=== PATIENT | male | born 1970 | race Caucasian/White ===

== ENCOUNTER 2019-10-10 11:44 | Emergency (ER) | payer SELFPAY ==
[2019-10-10] MEDS ORDERED: Bacitracin Oint 1 GM U/D Packet TOP ONE (12:12)
--- NOTE | 2019-10-10 12:24 | EDM.PDOC ---
ED HPI GENERAL MEDICAL PROBLEM - General Chief Complaint: Laceration Time Seen by Provider: 10/10/19 12:15 Source of Information: Reports: Patient, RN History Limitations: Reports: No Limitations - History of Present Illness INITIAL COMMENTS - FREE TEXT/NARRATIVE: patient presents to the ED for a laceration over the PIP joint of left thumb with a piece of sheet metal. He states his tetanus is UTD. no bleeding at this time. - Related Data Allergies Allergy/AdvReac Type Severity Reaction Status Date / Time No Known Allergies Allergy Verified 10/10/19 12:04 Home Meds: Home Meds Escitalopram Oxalate [Lexapro] 20 mg PO DAILY 10/10/19 [History] Past Medical History Musculoskeletal History: Reports: Fracture - Past Surgical History Musculoskeletal Surgical History: Reports: Other (See Below) Other Musculoskeletal Surgeries/Procedures:: back surgery Social & Family History - Tobacco Use Smoking Status *Q: Current Every Day Smoker Years of Tobacco use: 30 Packs/Tins Daily: 0.5 ED ROS GENERAL - Review of Systems Review Of Systems: Comprehensive ROS is negative, except as noted in HPI. ED EXAM, SKIN/RASH Exam: See Below Exam Limited By: No Limitations General Appearance: Alert, WD/WN, No Apparent Distress Back Exam: Normal Inspection Neurological: Alert, Oriented Psychiatric: Normal Mood Skin: Warm, Dry, Wound/Incision (1 inch laceration over the PIP joint of left thumb. no loss of function or sensation. Full ROM intact) Location, Skin: Other (left thumb) Characteristics: Linear Lymphatic: No Adenopathy Course - Vital Signs Last Recorded V/S: Last Vital Signs Temp 96.8 F L 10/10/19 12:08 Pulse 74 10/10/19 12:08 Resp 12 10/10/19 12:08 BP 141/95 H 10/10/19 12:08 Pulse Ox 99 10/10/19 12:08 - Orders/Labs/Meds Meds: Medications Discontinued Medications Generic Name Dose Route Start Last Admin Trade Name Cain PRN Reason Stop Dose Admin Bacitracin 1 dose 10/10/19 12:12 10/10/19 12:22 Bacitracin Oint 1 Gm TOP 10/10/19 12:13 1 dose ONETIME ONE Administration Lidocaine HCl 5 ml 10/10/19 12:12 10/10/19 12:22 Xylocaine-Mpf 1% INJECT 10/10/19 12:13 5 ml ONETIME ONE Administration Departure - Departure Time of Disposition: 12:38 Disposition: Home, Self-Care 01 Condition: Good Clinical Impression: Laceration of left thumb without complication - Discharge Information *PRESCRIPTION DRUG MONITORING PROGRAM REVIEWED*: Not Applicable *COPY OF PRESCRIPTION DRUG MONITORING REPORT IN PATIENT RON: Not Applicable Instructions: Laceration Care, Adult, [id number] Referrals: PCP,None [Primary Care Provider] - Forms: ED Department Discharge Additional Instructions: Suture remove in 7-8 days. Use bacitracin on the wound for next 3 days and keep covered during the day- open to air at night. keep clean and dry. wash with soap and water twice daily and pat dry. watch for signs of infection (fever, redness, increased warmth, or swelling). Follow up with your PCP if any of these signs develop. Call or return to emergency department with any concerns. Sepsis Event Note (ED) - Evaluation Sepsis Screening Result: No Definite Risk - Focused Exam Vital Signs: Vital Signs Temp Pulse Resp BP Pulse Ox 10/10/19 12:08 96.8 F L 74 12 141/95 H 99 10/10/19 12:01 96.8 F L 74 12 141/95 H 99
== END 2019-10-10 12:50 | disposition home or self-care (01) ==
LOC: JP.ED 11:44
DX: S61.012A Laceration without foreign body of left thumb without damage to nail, initial encounter (principal); F17.210 Nicotine dependence, cigarettes, uncomplicated; W26.8XXA Contact with other sharp object(s), not elsewhere classified, initial encounter; Z79.899 Other long term (current) drug therapy
CPT/HCPCS: 12001; 99282; J2001

== ENCOUNTER 2019-12-19 11:03 | Emergency (ER) | payer MEDICAID, OTHER ==
[2019-12-19] MEDS ORDERED: Bacitracin Oint 1 GM U/D Packet TOP ONE (11:42)
[2019-12-19] MEDS ORDERED: Lidocaine 1% with EPINEPHrine 1:100,000 50 ML MDV SUBCUT STA (11:42)
--- NOTE | 2019-12-19 11:47 | EDM.PDOC ---
ED HPI GENERAL MEDICAL PROBLEM - General Chief Complaint: Laceration Stated Complaint: LEFT HAND INJURY Time Seen by Provider: 12/19/19 11:40 Source of Information: Reports: Patient, RN Notes Reviewed History Limitations: Reports: No Limitations - History of Present Illness INITIAL COMMENTS - FREE TEXT/NARRATIVE: 49-year-old gentleman presents emergency department a complaint of lacerations to his left hand, he injured himself at work a piece of sheet metal got loose and landed on the dorsal surface of his left hand he has multiple small lacerations on the hand the largest being approximately 2 cm no functional complaints, states his tetanus is up-to-date - Related Data Allergies Allergy/AdvReac Type Severity Reaction Status Date / Time No Known Allergies Allergy Verified 12/19/19 11:23 Home Meds: Home Meds Escitalopram Oxalate [Lexapro] 20 mg PO DAILY 10/10/19 [History] Past Medical History Musculoskeletal History: Reports: Fracture Psychiatric History: Reports: Depression - Past Surgical History Musculoskeletal Surgical History: Reports: Other (See Below) Other Musculoskeletal Surgeries/Procedures:: back surgery Social & Family History - Tobacco Use Smoking Status *Q: Current Every Day Smoker Years of Tobacco use: 35 Packs/Tins Daily: 0.5 - Recreational Drug Use Recreational Drug Use: No ED ROS GENERAL - Review of Systems Review Of Systems: See Below Constitutional: Reports: No Symptoms Skin: Reports: Wound ED EXAM, SKIN/RASH Exam: See Below Text/Narrative:: Examination of the left hand reveals multiple lacerations between digits 1 and 2 the largest being approximately 2 cm there are several smaller lacerations ranging in size from 5mm to 10 mm, radial pulses +2 full range of motion of all digits ED SKIN PROCEDURES - Laceration/Wound Repair Left Hand Appearance: Subcutaneous, Irregular Distal NVT: Neuro & Vascular Intact, No Tendon Injury Anesthetic Type: Local Local Anesthesia - Lidocaine (Xylocaine): 1% Plain Local Anesthetic Volume: 2cc Skin Prep: Saline Saline Irrigation (cc's): 60 Exploration/Debridement/Repair: Wound Explored, In a Bloodless Field, Explored to Base Closed with: Sutures Lac/Wound length In cm: 2 Suture Size: 4-0 Suture Type: Nylon Sterile Dressing Applied: Nurse Tetanus Status Addressed: Yes Complications: No Digit - 1st (Thumb) Appearance: Superficial Distal NVT: Neuro & Vascular Intact, No Tendon Injury Anesthetic Type: Other (None) Local Anesthesia - Lidocaine (Xylocaine): Other (None) Skin Prep: Saline Saline Irrigation (cc's): 10 Exploration/Debridement/Repair: Wound Explored, In a Bloodless Field, Explored to Base Closed with: Dermabond Lac/Wound length In cm: 1 Sterile Dressing Applied: Nurse Tetanus Status Addressed: Yes Complications: No Course - Vital Signs Last Recorded V/S: Last Vital Signs Temp 97.7 F 12/19/19 11:41 Pulse 84 12/19/19 11:41 Resp 16 12/19/19 11:41 BP 173/106 H 12/19/19 11:41 Pulse Ox 98 12/19/19 11:41 - Orders/Labs/Meds Meds: Medications Discontinued Medications Generic Name Dose Route Start Last Admin Trade Name Cain PRN Reason Stop Dose Admin Bacitracin 1 dose 12/19/19 11:42 Bacitracin Oint 1 Gm TOP 12/19/19 11:43 ONETIME ONE Lidocaine/Epinephrine 20 ml 12/19/19 11:42 Xylocaine 1% With Epinephrine 1:100,000 SUBCUT 12/19/19 11:43 NOW STA Departure - Departure Time of Disposition: 12:07 Disposition: Home, Self-Care 01 Condition: Good Clinical Impression: Laceration of left hand Qualifiers: Encounter type: initial encounter Foreign body presence: without foreign body Qualified Code(s): S61.412A - Laceration without foreign body of left hand, initial encounter - Discharge Information Instructions: Sutured Wound Care, [id number] Referrals: PCP,None [Primary Care Provider] - Forms: ED Department Discharge Additional Instructions: Suture removal in 10 days, follow with primary care return to emergency department for suture removal call or return for worsening of symptoms follow wound care instruction sheet Sepsis Event Note (ED) - Evaluation Sepsis Screening Result: No Definite Risk - Focused Exam Vital Signs: Vital Signs Temp Pulse Resp BP Pulse Ox 12/19/19 11:41 97.7 F 84 16 173/106 H 98 12/19/19 11:22 97.7 F 84 16 173/106 H 98 - Assessment/Plan Plan: Assessment Acuity = acute Site and laterality = 2 cm laceration left hand Etiology = trauma with a piece of sheet metal Manifestations = none Location of injury = work Lab values = none Plan Suture removal in 10 days, follow wound care instruction sheet, follow-up with primary care return to clinic for suture removal This note was dictated using [employer] voice recognition software please call with any questions on syntax or grammar.
== END 2019-12-19 12:41 | disposition home or self-care (01) ==
LOC: JP.ED 11:03
DX: S61.412A Laceration without foreign body of left hand, initial encounter (principal); F32.9 Major depressive disorder, single episode, unspecified; F17.210 Nicotine dependence, cigarettes, uncomplicated; Z79.899 Other long term (current) drug therapy; W26.8XXA Contact with other sharp object(s), not elsewhere classified, initial encounter; Y99.0 Civilian activity done for income or pay
CPT/HCPCS: 12002; 99282; 99282-25

== ENCOUNTER 2021-10-19 15:39 | Emergency (ER) | payer SELFPAY | END 2021-10-19 18:26 | disposition home or self-care (01) | LOC: JP.ED 15:39 | DX: M21.331 Wrist drop, right wrist (principal); F10.930 Alcohol use, unspecified with withdrawal, uncomplicated; F17.210 Nicotine dependence, cigarettes, uncomplicated | CPT/HCPCS: 99283 ==